=== PATIENT | male | born 1980 | race Caucasian/White ===

== ENCOUNTER 2019-01-05 20:54 | Emergency (ER) | payer BC ==
[~2019-01-05] VITALS: Ht 193 cm; Wt 115.2 kg
--- NOTE | 2019-01-05 21:10 | NUR ---
PT BIBS. AAOX4. AMBULATORY. C/O "HAVING CP. NON RADIATING. MID STERNAL X5DAYS. PER PATIENT "I WANTED TO CHECK UP SINCE THE DR TOLD ME TO GO TO THE ER IF MY BP EXCEEDS 160." PT STATED HE HAS HX OF PTSD, AND IS "ANXIOUS EVERYDAY" PT PLACED ON MONITOR AND PULSE OX. BREATHIG EVEN AND UNLABORED. NO ACUTE DISTRESS NOTED. AWAITING MD FOR EVAL.
--- NOTE | 2019-01-05 21:10 | NUR ---
Note mary jane in EDM - 01/05/19 at 2121 by EVICTOR PT BIBS. AAOX4. AMBULATORY. C/O "HAVING CP. NON RADIATING. MID STERNAL X5DAYS. PT PLACED ON MOMITOR AND PULSE OX. AWAITING MD FOR EVAL.
--- NOTE | 2019-01-05 21:30 | NUR ---
XRAY AT BEDSIDE
[2019-01-05 21:34] LABS: BASOPHILS % (AUTO) 0.6 % (0.0-2.0); EOSINOPHILS % (AUTO) 1.8 % (0.0-6.0); HEMATOCRIT 38 % (39-51); HEMOGLOBIN 12.8 g/dL (13.5-17.5); LYMPHOCYTES # (AUTO) 1.3 /CMM (0.8-4.8); LYMPHOCYTES % (AUTO) 26.9 % (20.0-44.0); MEAN CORPUSCULAR HGB CONC 34 g/dl (31.0-36.0); MEAN CORPUSCULAR VOLUME 79 fL (80-96); MONOCYTES # (AUTO) 0.4 /CMM (0.1-1.30); NEUTROPHILS # (AUTO) 3.1 /CMM (1.8-8.9); NEUTROPHILS % (AUTO) 62.7 % (43.0-81.0); PLATELET COUNT (AUTO) 193 /CMM (150-450); RED BLOOD CELL COUNT(AUTO) 4.83 MIL/uL (4.5-6.0); WHITE BLOOD COUNT (AUTO) 4.9 K/uL (4.3-11.0)
[2019-01-05 21:57] LABS: CALCIUM, SERUM 8.7 mg/dL (8.5-10.1); CARBON DIOXIDE 27 mmol/L (21-32); CHLORIDE 102 mmol/L (98-107); CREATININE 1.1 mg/dL (0.6-1.3); GLUCOSE 127 mg/dL (74-106); POTASSIUM 3.3 mmol/L (3.5-5.1); SODIUM SERUM 139 mmol/L (136-145); UREA NITROGEN, BLOOD 15 mg/dL (7-18)
[2019-01-05 22:21] VITALS: BP 147/96
--- NOTE | 2019-01-05 22:21 | NUR ---
Patient discharged to home in stable condition. Written and verbal after care instructions given. Patient verbalizes understanding of instruction. PT ambulatory with a steady gait.
== END 2019-01-05 22:23 | disposition home or self-care (01) ==
LOC: ER 20:56
DX: R07.89 Other chest pain (principal); F41.9 Anxiety disorder, unspecified; F43.10 Post-traumatic stress disorder, unspecified; Z98.890 Other specified postprocedural states
CPT/HCPCS: 36415; 71045-TC; 80048-TC; 84484-TC; 85025-TC